=== PATIENT | female | born 1960 | race Caucasian/White ===

== ENCOUNTER 2018-03-19 15:59 | Emergency (ER) | payer BC ==
--- OUTSIDE RECORDS SUMMARY | 2018-03-19 16:15 | XMS REPORT ---
:1960 External Reference #:[id number] Author Organization [facility] Address [address] [place] [address] [place] [address] Phone [phone] Care Team Providers Name Role Phone Jose Roberson PA-C Primary Care Physician Unavailable Payers Type Date Identification Numbers Payment Provider Subscriber Commercial Policy Number: [id number] [employer] Shena Monson PayID: [id number] [address] [address] [place] [address] Problems Description No Information Social History Type Date Description Comments Marital Status Single Lives With Alone 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 Cigarette Use Former Cigarette Smoker Smoked 1/2 ppd for 10 years ETOH Use Rarely consumes alcohol Smoking Patient is a former smoker Recreational Drug Use Denies Drug Use Daily Caffeine Consumes on average 32oz of iced tea per day Exercise Type/Frequency Does not exercise Allergies, Adverse Reactions, Alerts Date Description Reaction Status Severity Comments 03/19/2018 Sulfa active 03/19/2018 Bioxin active 03/19/2018 Hydrocodone active 03/19/2018 Neosporin active Medications Medication Date Status Form Strength Qnty SIG Indications Ordering Provider Alprazolam / Active Tablets 0.25mg take 1-2 Unknown 0000 tablets by mouth three times a day if needed for anxiety or s Bupropion HCL ER / Active Tablets ER 200mg 1 tab qd Unknown (SR) 0000 12HR Lamotrigine / Active Tablets 200mg 1 tab qd Unknown 0000 Amitriptyline / Active Tablets 25mg 1 qhs Unknown HCL 0000 Omeprazole / Active Capsules 20mg 1 tab qd Unknown [address] DR Adderall XR / Active Caps ER 20mg once by Unknown 0000 24HR mouth every morning Adderall 0000/ Active Tablets 20mg 1 by Unknown 0000 mouth every day Vitamn D 00/ Active Capsules [id number] 1 by Unknown 0000 mouth every day Vitamin B6 0000/ Active Tablets 200mg 1/2 by Unknown 0000 mouth every day Multi Vitamin 00/00/ Active Tablets 1 by Unknown Daily 0000 mouth every day Calcium 00/00/ Active Tablets 1000Units 1 by Unknown 0000 mouth a day Vital Signs Date Vital Result Comment 03/19/2018 Height 67 inches 5'7" Weight 169.00 lb Heart Rate 108 /min BP Systolic Sitting 112 mmHg BP Diastolic Sitting 64 mmHg Respiratory Rate 14 /min O2 % BldC Oximetry 98 % BMI (Body Mass Index) 26.5 kg/m2 Neck Circumference in inches 14.5 Results Description No Information Procedures Date CPT Code Description Status 12/30/2017 99914 Moderate Sedation Services; Same Phys Each Additional Completed 15 Mins 12/30/2017 06422 Moderate Sedation Services; Same Phys Intl 15 Mins; PT Completed >=5 Years 12/30/2017 26712 Fluoroscopic Guidance For Cent Completed 12/30/2017 82727 Ultrasound Guidance For Vascular Access Completed 12/30/2017 25504 Insertion Tunneled Cent Venous Cathr W Subcut Port 5 Completed Yrs Or Oldr Encounters Type Date Location Provider CPT E/M Dx Office Visit 03/19/2018 10:00a [facility] [place] [address] [facility] [facility] C50.919 Plan of Care 03/19/2018 - Clara Bermeo MDJ90 Pleural effusion, not elsewhere classifiedFollow up:1 weekC50.919 Malignant neoplasm of unsp site of unspecified female breast
[2018-03-19] MEDS ORDERED: Gadoteridol* (CONTRAST) 279.3 MG/ML 10 ML IV ONE (17:04)
--- NOTE | 2018-03-19 18:08 | ED ---
Neurological HPI - HPI Summary HPI Summary: This is Barbara queen, documenting for attending Femi Roque MD. This patient is a 57 [facility] Av[facility] due to increased bilateral lower extremity weakness and gradually worsening gait and stability. Dr. Elizabeth called and reports new pleural effusion which requires thoracentesis (will be performed as on outpatient). Dr. Elizabeth reports a significant PMHx of breast CA with metastasis to the bone. Due to recent symptoms Dr. Elizabeth ordered an outpatient MRI that could not be done timely. She is sending this patient to be sent to ED to have a Brain MRI performed here. If metastasis to the brain is found, she recommends patient be admitted and given radiation tomorrow. I, Dr. Roque personally performed the services described in this documentation as scribed in my presence and it is both accurate and complete. - History of Current Complaint Chief Complaint: EDWeakness Stated Complaint: WEAKNESS IN LEGS Time Seen by Provider: 03/19/18 16:01 Hx Obtained From: Patient Onset/Duration: Gradual Onset, Started weeks ago Timing: Constant Onset Severity: Mild Current Severity: Moderate Neurological Deficit Location: RLE, LLE Pain Intensity: 0 Character: Weak, Other: - gait changes Associated Signs and Symptoms: Positive: Unsteady Gait - Allergy/Home Medications Allergies/Adverse Reactions: Allergies Allergy/AdvReac Type Severity Reaction Status Date / Time clarithromycin [From Biaxin] Allergy Unknown Verified 03/04/18 10:10 Reaction Details hydrocodone Allergy Nausea And Verified 03/04/18 10:11 Vomiting/DIZZY Sulfa (Sulfonamide Allergy Rash Verified 03/04/18 10:10 Antibiotics) PMH/Surg Hx/FS Hx/Imm Hx Endocrine/Hematology History: Denies: Hx Diabetes Cardiovascular History: Denies: Hx Hypertension, Hx Pacemaker/ICD History: Denies: Hx Renal Disease Sensory History: Denies: Hx Hearing Aid Psychiatric History: Denies: Hx Panic Disorder - Cancer History Cancer Type, Location and Year: BREAST CA. BONE CA - Surgical History Surgery Procedure, Year, and Place: URETER RELOCATION. APPY. GALLBLADDER. LUMPECTOMY RIGHT BREAST-BENIGN. BILATERAL THUMBS. C SECTION. HYSTERECTOMY Infectious Disease History: No Infectious Disease History: Denies: Traveled Outside the US in Last 30 Days - Family History Known Family History: Positive: Hypertension - Social History Alcohol Use: Rare Substance Use Type: Reports: None Smoking Status (MU): Former Smoker Review of Systems Negative: Fever, Chills Negative: Erythema Negative: Sore Throat Negative: Chest Pain Negative: Shortness Of Breath, Cough Negative: Abdominal Pain, Vomiting, Diarrhea, Nausea Negative: dysuria, hematuria Negative: Myalgia, Edema Negative: Rash Neurological: Other - unsteady gait Positive: Weakness All Other Systems Reviewed And Are Negative: Yes Physical Exam - Summary Physical Exam Summary: Constitutional: Well-developed, Well-nourished, Alert. (-) Distressed Skin: Warm, Dry HENT: Normocephalic; Atraumatic Eyes: Conjunctiva normal Neck: Musculoskeletal ROM normal neck. (-) JVD, (-) Stridor, (-) Tracheal deviation Cardio: Rhythm regular, rate normal, Heart sounds normal; Intact distal pulses; The pedal pulses are 2+ and symmetric. Radial pulses are 2+ and symmetric. (-) Murmur Pulmonary/Chest wall: Effort normal. (-) Respiratory distress, (-) Wheezes, (-) Rales Abd: Soft. (-) Tenderness, (-) Distension, (-) Guarding, (-) Rebound Musculoskeletal: (-) Edema Lymph: (-) Cervical adenopathy Neuro: Alert, Oriented x3, Strength normal, Cranial nerves II-XII are grossly intact. (-) Dysmetria, (-) Nystagmus, (-) Ataxia by finger to nose testing, (-) Sensory deficit. GCS 15. Psych: Mood and affect Normal Triage Information Reviewed: Yes Vital Signs On Initial Exam: Initial Vitals Temp Pulse Resp BP Pulse Ox 98.1 F 103 20 120/66 100 03/19/18 16:02 03/19/18 16:02 03/19/18 16:02 03/19/18 16:02 03/19/18 16:02 Vital Signs Reviewed: Yes Diagnostics - Vital Signs Vital Signs Temp Pulse Resp BP Pulse Ox 03/19/18 16:02 98.1 F 103 20 120/66 100 - Laboratory Result Diagrams: 03/19/18 20:05 03/19/18 20:05 Lab Statement: Any lab studies that have been ordered have been reviewed, and results considered in the medical decision making process. - CT Brain MRI CT Interpretation Completed By: Radiologist - #. New solitary 4 mm enhancing metastatic lesion at the posterior LEFT frontal lobe cortex. Negative for mass effect. #. Chronic nonenhancing white matter lesions most consistent with sequela of chronic microvascular disease. #. No evidence for acute or subacute ischemia. ED Physician has reviewed this report. Course/Dx - Course Course Of Treatment: 57 year old F presenting to [facility] sent from Dr. Aviles office due to increased bilateral lower extremity weakness and gradually worsening gait and stability. Dr. Elizabeth called and reports new pleural effusion which requires thoracentesis (will be performed as on outpatient). Dr. Elizabeth reports a significant PMHx of breast CA with metastasis to the bone. Due to recent symptoms Dr. Elizabeth ordered an outpatient MRI that could not be done timely. She is sending this patient to be sent to ED to have a Brain MRI performed here. If metastasis to the brain is found, she recommends patient be given radiation tomorrow. A Brain MRI reveals: #. New solitary 4 mm enhancing metastatic lesion at the posterior LEFT frontal lobe cortex. Negative for mass effect. #. Chronic nonenhancing white matter lesions most consistent with sequela of chronic microvascular disease. #. No evidence for acute or subacute ischemia. Bloodwork is obtained. Patient is instructed to follow up with Dr. Pan tomorrow to begin radiation. Patient is discharged and agreeable with this plan. - Diagnoses Provider Diagnoses: Unsteady gait, Metastatic breast cancer Discharge - Sign-Out/Discharge Documenting (check all that apply): Patient Departure - Discharge Plan Condition: Stable Disposition: HOME Patient Education Materials: Breast Cancer in Women (DC), Fall Prevention (ED) Referrals: Rajendra Pan MD [Medical Doctor] - (Follow up with Dr. Pan tomorrow.) Additional Instructions: RETURN TO THE EMERGENCY DEPARTMENT FOR CHANGING OR WORSENING SYMPTOMS.
--- NOTE | 2018-03-19 18:58 | RAD ---
Indication: Gait instability. Assess for potential brain metastasis. History of metastatic breast cancer. Comparison: August 23, 2017 MRI. Technique: Moonshoota 1.5 Jeannette [id number] with GEM suite. MRI brain without and with contrast. 16 mL ProHance administered IV. Report: Unremarkable cerebral sulci. Variant asymmetric prominence of the occipital horn of the LEFT lateral ventricle. Negative for hydrocephalus. Patent basal cisterns. Diffusion series is negative for acute or subacute ischemia. Susceptibility series is negative for stigmata of hemosiderin deposition to indicate previous hemorrhage. New solitary 4 mm T2 hyperintense enhancing cortical lesion at the posterior LEFT frontal lobe at the cephalocaudal level of the jeffrey radiata consistent with a metastasis given the clinical context. Negative for mass effect. Unchanged moderate burden of nonenhancing T2 FLAIR hyperintense periventricular and subcortical white matter lesions of the bilateral cerebral hemispheres most consistent with chronic small vessel ischemic disease. Preserved major intracranial flow-voids. Unremarkable orbital contents. No suspicious calvarial or skull base lesions evident. Clear paranasal sinuses. Diffuse LEFT mastoid effusions new compared with the prior exam. IMPRESSION: #. New solitary 4 mm enhancing metastatic lesion at the posterior LEFT frontal lobe cortex. Negative for mass effect. #. Chronic nonenhancing white matter lesions most consistent with sequela of chronic microvascular disease. #. No evidence for acute or subacute ischemia.
[2018-03-19 20:15] LABS: Hematocrit 24 % (35-47); Hemoglobin 8.2 g/dl (12.0-16.0); Mean Corpuscular HGB Conc 34 g/dl (31-36); Mean Corpuscular Hemoglobin 32 pg (27-31); Mean Corpuscular Volume 94 fL (80-97); Mean Platelet Volume 6.4 um3 (7.4-10.4); Platelet Count 186 10^3/ul (150-450); Red Blood Count 2.59 10^6/ul (4.00-5.40); Red Cell Distribution Width 23 % (10.5-15); White Blood Count 3.4 10^3/ul (3.5-10.8)
[2018-03-19 20:28] LABS: EGFR Non-African American 59.5 (>60)
[2018-03-19 21:28] VITALS: BP 130/60
--- NOTE | 2018-03-20 04:09 | PRO ---
THORACENTESIS REPORT: DATE OF PROCEDURE: 03/19/18 - [facility] PROCEDURE PERFORMED BY: Clara Bermeo MD PROCEDURE PERFORMED: Ultrasound-sound guided thoracentesis on the left side. PREPROCEDURAL DIAGNOSIS: Moderate-sized left pleural effusion. POSTPROCEDURAL DIAGNOSIS: ANESTHESIA: 1% lidocaine, local anesthesia 5 cc. DESCRIPTION OF PROCEDURE: Informed consent was obtained from the patient prior to the procedure after all the risks and benefits were thoroughly explained. The patient with history of breast cancer, found to have bilateral pleural effusion greater on the left side. Procedure was performed in [facility], patient was monitored during procedure by pulmonology RN. Appropriate time-out was performed and agreed on by attending staff prior to the procedure. Strict aseptic and all barrier techniques were utilized. The patient was sitting up and leaning forward. A CareFusion 8-German thoracentesis catheter was used. Ultrasound was utilized at bedside to facilitate localization of fluid on the left side. Site was marked. Chlorhexidine scrub was utilized to clean the area. A sterile drape was placed. 1% lidocaine then was instilled under manual suction subcutaneously and intradermally down into the pleural space taking precautions. A stab incision was made with #11 scalpel blade. A CareFusion 8- German thoracentesis catheter was then inserted under manual suction into the pleural space taking precautions. Catheter was left in place and needle was removed. 650 mL of clear dark yellow fluid was aspirated under manual suction. Specimen was sent for cytological, biochemical, and hematological testing. Catheter was then removed and sterile Band-Aid was applied. The patient tolerated the procedure well. Postprocedure chest x-ray was ordered and is pending at the time of dictation. The patient's vital signs were stable during and after the procedure. [id number]/[facility] #: [id number] [facility]
== END 2018-03-19 21:25 | disposition home or self-care (01) ==
LOC: ED 15:59
DX: R26.81 Unsteadiness on feet (principal); C50.919 Malignant neoplasm of unspecified site of unspecified female breast; C79.51 Secondary malignant neoplasm of bone; J90 Pleural effusion, not elsewhere classified; Z88.1 Allergy status to other antibiotic agents; Z88.5 Allergy status to narcotic agent; Z88.2 Allergy status to sulfonamides; Z82.49 Family history of ischemic heart disease and other diseases of the circulatory system; Z87.891 Personal history of nicotine dependence
CPT/HCPCS: 36415; 70553; 80053; 85027; 96374; 99282; A9579

== ENCOUNTER → 2018-04-24 10:54 | Day surgery (SDC) | payer BC ==
[~2018-04-24 10:54] MED LIST: Lidocaine 1% INJ* 10 MG/ML 30 ML SDV ONE
--- NOTE | 2018-04-24 12:55 | RAD ---
HISTORY: THORACENTESIS PROCEDURE COMPARISONS: None. TECHNIQUE: Multiple transverse and longitudinal ultrasound images were obtained of the left chest using grayscale imaging. FINDINGS: A left pleural effusion is noted. The distance from the skin into the effusion is 1.7 cm. The distance from the skin to the center of the effusion a 6.3 cm. The site was marked for the provider. IMPRESSION: LIMITED ULTRASOUND OF THE LEFT CHEST FOR THORACENTESIS LOCALIZATION
--- NOTE | 2018-04-24 13:18 | RAD ---
Indication: Status post left thoracentesis. Single frontal view of the chest performed at 1255 hours was reviewed. Comparison is made with previous exam dated April 11, 2018. Bilateral pleural effusions are noted. Interstitial edema is noted. Heart is mildly enlarged. No alveolar consolidation is noted. No pneumothorax is identified.. IMPRESSION: INTERSTITIAL EDEMA WITH BILATERAL PLEURAL EFFUSIONS. PACEMAKER LEADS ARE IN PLACE.
--- NOTE | 2018-04-25 01:34 | PRO ---
DICTATION ENDS ABRUPTLY THORACENTESIS REPORT: DATE OF PROCEDURE: 04/24/18 PROCEDURE PERFORMED: Ultrasound-guided thoracentesis on the left side. PREPROCEDURAL DIAGNOSIS: DICTATION ENDS ABRUPTLY [id number]/[facility] #: [id number] [facility]
--- NOTE | 2018-04-25 01:34 | PRO ---
THORACENTESIS REPORT: DATE OF PROCEDURE: 04/24/18 - LOCATED WITHIN [facility] PROCEDURE PERFORMED: Ultrasound-sound guided thoracentesis on the left side. PREPROCEDURAL DIAGNOSIS: Left pleural effusion. POSTPROCEDURAL DIAGNOSIS: Left pleural effusion, moderate to large. ANESTHESIA: Local anesthesia with 1% lidocaine 5 cc. INDICATION: Informed consent was obtained from the patient prior to the procedure after all the risks and benefits were thoroughly explained. The patient recently noted to have recurrent pleural effusion, prior thoracentesis positive for malignant cells. The patient with history of breast cancer. The patient presents with recurrent pleural effusion, symptomatic with cough and shortness of breath. DESCRIPTION OF PROCEDURE: A portable ultrasound was utilized at bedside to localize moderate to large amounts of left pleural effusion freely flowing. No fluid was noted on the right lung. Appropriate time-out was agreed on by attending staff prior to the procedure. Strict aseptic precautions and all barrier techniques were followed. Area was then anesthetized with 1% lidocaine. Sterile drape was placed. After ultrasound localization, area was marked. A CareFusion 8-Surinamese thoracentesis catheter was utilized. 1% lidocaine was inserted transdermally subcutaneously down into the pleural space taking precautions. A #11 scalpel blade was used to make stab incision. An 8- Surinamese thoracentesis catheter was then inserted under manual suction down into the pleural space. Catheter was left in place and needle was removed. 850 mL of dark, yellow, turbid fluid was aspirated under manual suction. Catheter was then removed. A sterile Band-Aid was applied in the area. The patient tolerated the procedure well. Postprocedure chest x-ray was performed and verified by me with no evidence of pneumothorax. The patient was stable and was discharged home. [id number]/[facility] #: [id number] [facility]
== END | disposition home or self-care (01) ==
LOC: OR 10:54
PROVIDERS: ATTEND Internal Medicine
DX: J91.0 Malignant pleural effusion (principal); C50.919 Malignant neoplasm of unspecified site of unspecified female breast; R05 Cough; R06.02 Shortness of breath; Z87.891 Personal history of nicotine dependence
CPT/HCPCS: 32554; 71045; 76604; 88112; 88305; 88341; 88342; 88360

== ENCOUNTER 2018-04-24 14:14 | Emergency (ER) | payer BC ==
[2018-04-24 15:28] LABS: Hematocrit 23 % (35-47); Hemoglobin 7.7 g/dl (12.0-16.0); Mean Corpuscular HGB Conc 34 g/dl (31-36); Mean Corpuscular Hemoglobin 31 pg (27-31); Mean Corpuscular Volume 94 fL (80-97); Mean Platelet Volume 6.8 um3 (7.4-10.4); Platelet Count 188 10^3/ul (150-450); Red Blood Count 2.45 10^6/ul (4.00-5.40); Red Cell Distribution Width 23 % (10.5-15); White Blood Count 1.6 10^3/ul (3.5-10.8)
--- NOTE | 2018-04-24 15:28 | ED ---
HPI Chest Pain - HPI Summary HPI Summary: This patient is a 57 year old F presenting to [facility] accompanied by another woman with a chief complaint of left sided P that began today after her thoracentesis. Today patient had 850 mls of fluid drained from her chest. The patient rates the pain 8/10 in severity. Patient denies SOB increase from baseline. Pt has metastatic breast cancer. Pt is not on blood thinners. - History of Current Complaint Chief Complaint: EDChestPainROMI Time Seen by Provider: 04/24/18 15:04 Hx Obtained From: Patient Onset/Duration: Started Hours Ago, Still Present Timing: Constant Initial Severity: Moderate Current Severity: Moderate Pain Intensity: 8 Pain Scale Used: 0-10 Numeric Chest Pain Location: Left Anterior Chest Pain Radiates: No Alleviating Factor(s): Nothing - SOB increased from baseline - Allergy/Home Medications Allergies/Adverse Reactions: Allergies Allergy/AdvReac Type Severity Reaction Status Date / Time bacitracin Allergy See Comment Verified 04/24/18 11:38 [From Neosporin ([id number])] clarithromycin [From Biaxin] Allergy Unknown Verified 04/24/18 11:38 Reaction Details hydrocodone Allergy Nausea And Verified 04/24/18 11:38 Vomiting/DIZZY neomycin Allergy See Comment Verified 04/24/18 11:38 [From Neosporin ([id number])] polymyxin B Allergy See Comment Verified 04/24/18 11:38 [From Neosporin ([id number])] Sulfa (Sulfonamide Allergy Rash Verified 04/24/18 11:38 Antibiotics) Home Medications: Home Medications ALPRAZolam TAB* [Xanax TAB*] 0.25 - 0.5 mg PO TID PRN 04/24/18 [History Confirmed 04/24/18] Amitriptyline TAB* [Elavil TAB*] 25 mg PO BEDTIME 04/24/18 [History Confirmed ] Amphetamine/Dextroamph ER(NF) [Adderal XR (NF)] 20 mg PO DAILY 04/24/18 [ History Confirmed 04/24/18] Calcium Carbonate [Calcium] 1,000 mg PO DAILY 04/24/18 [History Confirmed ] Cetirizine* [ZyrTEC 10 MG TAB*] 5 mg PO DAILY 04/24/18 [History Confirmed ] Multivitamins/Minerals TAB* [Theragran/minerals TAB*] 1 tab PO DAILY 04/24/18 [ History Confirmed 04/24/18] Omeprazole CAP* [Prilosec CAP* 20 MG] 20 mg PO DAILY 04/24/18 [History Confirmed 04/24/18] Prochlorperazine TAB* [Compazine Tab*] 10 mg PO Q4HR PRN 04/24/18 [History Confirmed 04/24/18] Pyridoxine TAB* [Vitamin B6 TAB*] 100 mg PO DAILY 04/24/18 [History Confirmed ] buPROPion SR TAB* [Wellbutrin SR TAB*] 200 mg PO DAILY 04/24/18 [History Confirmed 04/24/18] lamoTRIgine TAB(*) [LaMICtal TAB(*)] 200 mg PO DAILY 04/24/18 [History Confirmed 04/24/18] oxyCODONE TAB* [Roxycodone TAB 5 mg*] 5 mg PO Q6H PRN 04/24/18 [History Confirmed 04/24/18] PMH/Surg Hx/FS Hx/Imm Hx Endocrine/Hematology History: Denies: Hx Diabetes Cardiovascular History: Denies: Hx Hypertension, Hx Pacemaker/ICD GI History: Denies: Hx Gastrointestinal Bleed History: Denies: Hx Renal Disease Sensory History: Denies: Hx Hearing Aid Psychiatric History: Denies: Hx Panic Disorder - Cancer History Cancer Type, Location and Year: BREAST CA. BONE CA - Surgical History Surgery Procedure, Year, and Place: URETER RELOCATION. APPY. GALLBLADDER. LUMPECTOMY RIGHT BREAST-BENIGN. BILATERAL THUMBS. C SECTION. HYSTERECTOMY - Immunization History Immunizations Up to Date: Yes Infectious Disease History: No Infectious Disease History: Denies: Traveled Outside the [place] in Last 30 Days - Family History Known Family History: Positive: Hypertension - Social History Alcohol Use: Rare Substance Use Type: Reports: None Smoking Status (MU): Former Smoker Review of Systems Positive: Chest Pain Negative: Shortness Of Breath All Other Systems Reviewed And Are Negative: Yes Physical Exam - Summary Physical Exam Summary: Appearance: pallor, no pain distress Skin: warm, dry, reflects adequate perfusion, there is a port in the right chest wall Head/face: normal Eyes: EOMI, COSME ENT: normal Neck: supple, non-tender Respiratory: fine crackles in both bases Cardiovascular:tachy , pulses symmetrical Abdomen: non-tender, soft Bowel Sounds: present Musculoskeletal: normal, strength/ROM intact Neuro: normal, sensory motor intact, A&Ox3 Triage Information Reviewed: Yes Vital Signs On Initial Exam: Initial Vitals Temp Pulse Resp BP Pulse Ox 97.5 F 110 16 120/54 100 04/24/18 14:17 04/24/18 14:17 04/24/18 14:17 04/24/18 14:17 04/24/18 14:17 Vital Signs Reviewed: Yes Diagnostics - Vital Signs Vital Signs Temp Pulse Resp BP Pulse Ox 04/24/18 14:17 97.5 F 110 16 120/54 100 - Laboratory Result Diagrams: 04/24/18 15:16 04/24/18 15:16 Lab Statement: Any lab studies that have been ordered have been reviewed, and results considered in the medical decision making process. - Radiology CXR Radiology Interpretation Completed By: Radiologist - Bilateral pleural effusions. No pneumothorax is noted after thoracentesis. Central line is in place. Dr. Ball has reviewed this report. - EKG 1426 Cardiac Rate: Tachycardia EKG Rhythm: Sinus Tachycardia - at [address] Segment: Normal EKG Interpretation: nml axis Chest Pain Course/Dx - Course Course Of Treatment: Patient with a history of metastatic breast cancer presents with left-sided chest pain following thoracentesis after which he 150 ML's was removed from her chest. X-rays indicate no pneumothorax. Her vitals have remained stable to pre-procedure values. Her WBC is slightly lower given her recent round of chemotherapy. She was hydrated here with improvement. 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 Patient was discharged in improved condition. - Chest Pain Differential Diagnosis/HQI/PQRI: Chest Wall, Lower Respiratory Infection, Pulmonary Embolism, Other: - Pneumothorax - Diagnoses Provider Diagnoses: Metastatic cancer, Pleural effusion, Chest pain - Provider Notifications Discussed Care Of Patient With: Clara Bermeo Time Discussed With Above Provider: 16:32 Instructed by Provider To: Other - Discussed patient care with Dr. Bermeo and he suggested hydration and discharge Discharge - Sign-Out/Discharge Documenting (check all that apply): Patient Departure - Discharge - Discharge Plan Condition: Improved Disposition: HOME Patient Education Materials: Chest Pain (ED), Pleural Effusion (ED) Referrals: Chaya Roberson PA [Primary Care Provider] - Additional Instructions: Return with difficulty breathing, increased pain, fever, worse, new symptoms or other concerns as discussed - Billing Disposition and Condition Condition: IMPROVED Disposition: Home - Attestation Statements Document Initiated by Elaineibe: Yes Documenting Scribe: Praveen Valente Provider For Whom Scribe is Documenting (Include Credential): Teofilo Ball MD Scribe Attestation: Praveen Galvin , scribed for Teofilo Ball MD on 04/24/18 at 1807. Scribe Documentation Reviewed: Yes Provider Attestation: The documentation as recorded by the Praveen queen accurately reflects the service I personally performed and the decisions made by me, Teofilo Ball MD Consult Consult: [id number] I discussed patient care with Nupur Her the patients doctor. She suggested hydrating the patient then discharging her.
[2018-04-24 15:32] LABS: INR 1.09 (0.77-1.02)
[2018-04-24] MEDS ORDERED: NS 0.9% 500 ML* 500 ML IV ONE (15:53)
[2018-04-24 15:56] LABS: EGFR Non-African American 66.6 (>60)
[2018-04-24 15:58] LABS: Monocytes % 23 % (0-7)
[2018-04-24 15:59] LABS: ABS Basophils 0 10^3/ul (0-0.2); ABS Neutrophils 0.9 10^3/ul (1.5-7.7)
--- NOTE | 2018-04-24 16:01 | RAD ---
Indication: Chest pain. 2 views of the chest including dual energy PA views as well as lateral view of the left chest demonstrate small pleural effusions. No definite pneumothorax is noted. Mild interstitial edema is noted. Bilateral pleural effusions are noted. IMPRESSION: Bilateral pleural effusions. No pneumothorax is noted after thoracentesis. Central line is in place.
[2018-04-24] MEDS ORDERED: Acetaminophen TAB* 325 MG PO ONE (17:17)
[2018-04-24 17:32] VITALS: BP 124/72
--- NOTE | 2018-04-24 22:45 | ED ---
Progress - Progress Note Progress Note: 214904/24/18 Kandy from lab calls to make sure that critical lab was noted by provider. Reports absolute neutrophil count of 0.9. Dr. Ball's note reviewed. He notes the slightly decreased wbc count compared to previous. Dr. Elizabeth and Dr. Bermeo were both consulted. Pt was discharged. Labs noted in Dr. Ball's report. No further action needed. Loni Thurman MD 04/24/18 5081. Course/Dx - Course Course Of Treatment: Patient with a history of metastatic breast cancer presents with left-sided chest pain following thoracentesis after which he 150 ML's was removed from her chest. X-rays indicate no pneumothorax. Her vitals have remained stable to pre-procedure values. Her WBC is slightly lower given her recent round of chemotherapy. She was hydrated here with improvement. 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 Patient was discharged in improved condition. - Diagnoses Provider Diagnoses: Metastatic cancer, Pleural effusion, Chest pain - Provider Notifications Time Discussed With Above Provider: 16:32 Instructed by Provider To: Other - Discussed patient care with Dr. Bermeo and he suggested hydration and discharge Discharge - Sign-Out/Discharge Documenting (check all that apply): Post-Discharge Follow Up - Discharge Plan Condition: Improved Disposition: HOME Patient Education Materials: Chest Pain (ED), Pleural Effusion (ED) Referrals: Chaya Roberson PA [Primary Care Provider] - Additional Instructions: Return with difficulty breathing, increased pain, fever, worse, new symptoms or other concerns as discussed - Billing Disposition and Condition Condition: IMPROVED Disposition: Home
== END 2018-04-24 17:30 | disposition home or self-care (01) ==
LOC: ED 14:14
DX: R07.9 Chest pain, unspecified (principal); C79.81 Secondary malignant neoplasm of breast; J90 Pleural effusion, not elsewhere classified; R00.0 Tachycardia, unspecified; Z87.891 Personal history of nicotine dependence; Z88.3 Allergy status to other anti-infective agents; Z88.5 Allergy status to narcotic agent; Z88.2 Allergy status to sulfonamides
CPT/HCPCS: 36415; 71046; 80053; 83605; 83880; 84484; 85025; 85060; 85610; 93005; 99283; A9270-GY

== ENCOUNTER 2018-09-17 20:51 | Inpatient (IN) | payer MEDICAID ==
[2018-09-17] MEDS ORDERED: Ondansetron INJ* 2 MG/ML VIAL IV ONE (21:16)
[2018-09-17] MEDS ORDERED: Acetaminophen TAB* 325 MG PO ONE (21:16)
[2018-09-17] MEDS ORDERED: fentaNYL* 50 MCG/ML 2 ML VIAL (100 MCG VIAL) IV SLOW PU ONE (21:16)
[2018-09-17] MEDS ORDERED: Vancomycin(*) 1,000 MG in NS 0.9% 250 ML* 250 ML IVPB ONE (21:17)
[2018-09-17] MEDS ORDERED: cefTRIAXone(*) 2 GM in NS 0.9% 100 ML* 100 ML IVPB ONE (21:17)
[2018-09-17] MEDS ORDERED: NS 0.9% 1000 ML** 2,000 ML IV ONE (21:18)
--- NOTE | 2018-09-17 21:19 | ED ---
Headache - HPI Summary HPI Summary: This patient is a 57 year old F with hx breast CA presenting to [facility] accompanied by her sister with a chief complaint of BURGOS and confusion since 16: 00. Patient notes that she had a chemo session earlier today and that she usually goes to chemo biweekly. The patient rates the pain 6/10 in severity. Symptoms aggravated by nothing. Symptoms alleviated by nothing. Patient reports fatigue and neck pain. Patient is able to correctly answer questions about the year and place. Patient denies N/V. Patient notes that she was seen at [facility] this weekend for nausea. Patient was diagnosed with metastatic breast CA in June 2015. Patient notes that she never had a mastectomy because a lesion was noted on her spine. - History Of Current Complaint Chief Complaint: EDAltMentalStatus Stated Complaint: HEADACHE Time Seen by Provider: 09/17/18 21:02 Hx Obtained From: Patient Onset/Duration: Sudden Onset, Started hours ago, Still Present Initially Headache Was: Moderate Currently Pain Is: Current Pain Scale(0-10)= - 6, Moderate Timing: Constant, Hours Location of Headache: Diffuse Aggravating Factor: Nothing Allevating Factors: Nothing Associated Signs And Symptoms: Negative - negative nausea, negative vomiting, Neck Pain - Allergies/Home Medications Allergies/Adverse Reactions: Allergies Allergy/AdvReac Type Severity Reaction Status Date / Time bacitracin Allergy See Comment Verified 05/07/18 10:17 [From Neosporin ([id number])] clarithromycin [From Biaxin] Allergy Unknown Verified 05/07/18 10:17 Reaction Details hydrocodone Allergy Nausea And Verified 05/07/18 10:17 Vomiting/DIZZY neomycin Allergy See Comment Verified 05/07/18 10:17 [From Neosporin ([id number])] polymyxin B Allergy See Comment Verified 05/07/18 10:17 [From Neosporin ([id number])] Sulfa (Sulfonamide Allergy Rash Verified 05/07/18 10:17 Antibiotics) PMH/Surg Hx/FS Hx/Imm Hx Endocrine/Hematology History: Denies: Hx Diabetes Cardiovascular History: Reports: Other Cardiovascular Problems/Disorders - LEFT THORACENTESIS X3 Denies: Hx Hypertension, Hx Pacemaker/ICD GI History: Denies: Hx Gastrointestinal Bleed History: Denies: Hx Renal Disease Sensory History: Denies: Hx Hearing Aid Psychiatric History: Denies: Hx Panic Disorder - Cancer History Cancer Type, Location and Year: BREAST CA, METS Hx Chemotherapy: Yes Hx Radiation Therapy: Yes - Surgical History Surgery Procedure, Year, and Place: URETER RELOCATION. APPY. GALLBLADDER. LUMPECTOMY RIGHT BREAST-BENIGN. BILATERAL THUMBS. C SECTION. HYSTERECTOMY. PORT 02/2018. GAMMA KNIFE X 3 03/2018,05/2018, 07/2018 Infectious Disease History: No Infectious Disease History: Denies: Traveled Outside the [place] in Last 30 Days - Family History Known Family History: Positive: Hypertension - Social History Alcohol Use: Rare Substance Use Type: Reports: None Smoking Status (MU): Former Smoker Review of Systems Positive: Fatigue Negative: Epistaxis Negative: Vomiting, Nausea Musculoskeletal: Other - neck pain Positive: Headache All Other Systems Reviewed And Are Negative: Yes Physical Exam - Summary Physical Exam Summary: VITAL SIGNS: Reviewed. GENERAL: Patient is a well-developed and nourished FEMALE who seems uncomfortable due to her headache. Patient is not in any acute respiratory distress. HEAD AND FACE: No signs of trauma. No ecchymosis, hematomas or skull depressions. No sinus tenderness. EYES: PERRLA, EOMI x 2, No injected conjunctiva, no nystagmus. EARS: Hearing grossly intact. Ear canals and tympanic membranes are within normal limits. MOUTH: Oropharynx within normal limits. NECK: Supple, trachea is midline, no adenopathy, no JVD, no carotid bruit, no c- spine tenderness, mild nuchal rigidity. CHEST: Symmetric, no tenderness at palpation LUNGS: Clear to auscultation bilaterally. No wheezing or crackles. CVS: Regular rhythm, tachycardia, S1 and S2 present, no murmurs or gallops appreciated. ABDOMEN: Soft, non-tender. No signs of distention. No rebound no guarding, and no masses palpated. Bowel sounds are normal. EXTREMITIES: FROM in all major joints, no edema, no cyanosis or clubbing. NEURO: Alert and oriented x 3. No acute neurological deficits. Speech is normal and follows commands. No focal deficits. SKIN: Dry and warm Triage Information Reviewed: Yes Vital Signs On Initial Exam: Initial Vitals Temp Pulse Resp BP Pulse Ox 98.9 F 142 22 147/100 98 09/17/18 20:55 09/17/18 20:55 09/17/18 20:55 09/17/18 20:55 09/17/18 20:55 Vital Signs Reviewed: Yes Procedures - Lumbar Puncture Lumbosacral Joint Procedural Sedation: none administered Position: Sitting - both positions tried, Lateral Decubitus - both positions tried Aseptic Technique: Lidocaine Anesthesia Used: 2.0% Lido - with epi Spinal Needle Used: 20 Gauge Lumbar Puncture Note: Written consent for a spinal tap was obtained from the patients sister. Aseptic technique was used. 2% lidocaine with epi was administered. Patient has scoliosis. I tried multiple attempts between L4 and L5 but was unable to get CSF. This was a dry tap and no CSF was obtained. Diagnostics - Vital Signs Vital Signs Temp Pulse Resp BP Pulse Ox 09/17/18 20:55 98.9 F 142 22 147/100 98 - Laboratory Result Diagrams: 09/17/18 21:47 09/17/18 21:47 Lab Statement: Any lab studies that have been ordered have been reviewed, and results considered in the medical decision making process. - Radiology CXR Radiology Interpretation Completed By: ED Physician - Dr. Quintana, pending official report Summary of Radiographic Findings: large left perfusion with compressive atelectasis - CT CT Brain CT Interpretation Completed By: Radiologist Summary of CT Findings: No acute intracranial abnormality. Dr. Quintana has reviewed this report - EKG 21:18 Cardiac Rate: Tachycardia - at 137 bpm EKG Rhythm: Sinus Tachycardia ST Segment: Normal Summary of EKG Findings: sinus tachycardia at 137 bpm with nml axis, nml intervals, and no ischemic changes Headache Course/Dx - Course Course Of Treatment: This patient is a 57 year old F with hx metastatic breast CA and chemo presenting to [facility] with a chief complaint of acute onset BURGOS and fever since 16:00. Physical exam revealed some nuchal rigidity. Blood culture and abx were started immediately. An EKG reveals sinus tachycardia at 137 bpm with nml axis, nml intervals, and no ischemic changes. CXR reveals, per ED physician, large left perfusion with compressive atelectasis. CT Brain reveals, per radiologist, No acute intracranial abnormality. ED physician has reviewed this radiology report. Patient was examined for meningitis. Written consent for a spinal tap was obtained from the patients sister. Aseptic technique was used. 2% lidocaine with epi was administered. Patient has scoliosis. I tried multiple attempts but was unable to get CSF. This was a dry tap and no CSF was obtained. Test results with no significant abnormalities except for elevated LFTs and patient will receive an US. In the ED course the patient was given IV fluids, vancomycin, Rocephin, Zofran, fentanyl, and Tylenol. We discussed patient care with Dr. Wheeler, hospitalist, and they agreed to admit the patient to [facility]. Patient will be admitted to [facility]. Dx BURGOS, fever, possible meningitis, and left pleural effusion. 45 minutes of critical care time were performed. The patient is agreeable with this plan. - Diagnoses Provider Diagnoses: Pleural effusion, left, Fever, Headache - Physician Notifications Discussed Care Of Patient With: Sonia Wheeler Time Discussed With Above Provider: 22:58 Instructed by Provider To: Admit As Inpatient - Critical Care Time Critical Care Time: 30-74 min - 45 minutes Discharge - Sign-Out/Discharge Documenting (check all that apply): Patient Departure - admit to [facility] Patient Received Moderate/Deep Sedation with Procedure: No - Discharge Plan Condition: Fair Disposition: ADMITTED TO [facility] Referrals: Chaya Roberson PA [Primary Care Provider] - - Attestation Statements Document Initiated by Scribe: Yes Documenting Scribe: Kyara Narvaez Provider For Whom Scribe is Documenting (Include Credential): Laura Quintana MD Scribe Attestation: Kyara Galvin, scribed for Laura Quintana MD on 09/17/18 at 4163. Status of Scribe Document: Ready
--- OUTSIDE RECORDS SUMMARY | 2018-09-17 21:52 | XMS REPORT | Continuity of Care Document ---
:1960 External Reference #:[id number] Author Name Savannah Stokes Care Team Providers Name Role Phone Jose Roberson PA-C Primary Care Physician Unavailable Payers Type Date Identification Numbers Payment Provider Subscriber Policy Number: [id number] Medicaid Shena Pena [employer] Name: 1 1 [address] PayID: [id number] [place] [address] Expires: 2018 Policy Number: [id number] [employer] Shena Pena PayID: [id number] [address] [address] [place] [address] Advance Directives Description No Information Available Problems Description No Information Family History Description No Information Available Social History Type Date Description Comments Sex Unknown Marital Status Single Lives With Alone 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 Tobacco Use Start: Unknown End: Former Cigarette Smoker Smoked 1/2 ppd for Unknown 10 years Smoking Status Reviewed: 08/22/18 Former Cigarette Smoker Smoked 1/2 ppd for 10 years ETOH Use Rarely consumes alcohol Tobacco Use Start: Unknown End: Patient is a former Unknown smoker Recreational Drug Use Denies Drug Use Exercise Type/Frequency Does not exercise Allergies, Adverse Reactions, Alerts Date Description Reaction Status Severity Comments 03/19/2018 Sulfa Active 03/19/2018 Bioxin Active 03/19/2018 Hydrocodone Active 03/19/2018 Neosporin Active Medications Medication Date Status Form Strength Qnty SIG Indications Ordering Provider Alprazolam 00/ Active Tablets 0.25mg take 1-2 Unknown 0000 tablets by mouth three times a day if needed for anxiety or s Omeprazole / Active Capsules 20mg 1 tab qd Unknown [address] DR Dexamethasone 00/ Active Tablets 2mg Unknown 0000 CBD Oil 00/ Active Unknown 0000 Bupropion HCL ER / Hx Tablets ER 200mg 1 tab qd Unknown (SR) 0000 12HR Lamotrigine / Hx Tablets 200mg 1 tab qd Unknown 0000 Amitriptyline / Hx Tablets 25mg 1 qhs Unknown HCL 0000 Adderall XR / Hx Caps ER 20mg once by Unknown 0000 24HR mouth every morning Adderall / Hx Tablets 20mg 1 by Unknown 0000 mouth every day Vitamn D / Hx Capsules [id number] 1 by Unknown 0000 mouth every day Vitamin B6 / Hx Tablets 200mg 1/2 by Unknown 0000 mouth every day Multi Vitamin / Hx Tablets 1 by Unknown Daily 0000 mouth every day Calcium / Hx Tablets 1000Units 1 by Unknown 0000 mouth a day Immunizations Description No Information Available Vital Signs Date Vital Result Comment 08/22/2018 11:02am Height 67 inches 5'7" Weight 132.00 lb Heart Rate 84 /min BP Systolic 122 mmHg BP Diastolic 68 mmHg Respiratory Rate 16 /min Body Temperature 98.0 F BMI (Body Mass Index) 20.7 kg/m2 08/22/2018 11:01am Respiratory Rate 16 /min 03/19/2018 9:32am Height 67 inches 5'7" Weight 169.00 lb Heart Rate 108 /min BP Systolic Sitting 112 mmHg BP Diastolic Sitting 64 mmHg Respiratory Rate 14 /min O2 % BldC Oximetry 98 % BMI (Body Mass Index) 26.5 kg/m2 Neck Circumference in inches 14.5 Results Test Date Facility Test Result H/L Range Note Laboratory test 04/24/2018 [facility] Cytology SEE RESULT [address] Non-Psychology Intern BELOW [place], [place] [id number] [phone] Body Fluid C&S 03/19/2018 [facility] Body Fluid SEE RESULT [address] [place] [address] Stain [phone] Body Fluid Cell 03/19/2018 [facility] Body Fluid Pleural Fluid Count [address] Source [place], [place] [id number] [phone] Body Fluid WBC 843 /mcL N 3 Body Fluid RBC 70 /mcL Body Fluid Neutrophils 15 % Body Fluid Band 3 % Body Fluid Lymph 67 % Body Fluid [place] 13 % Body Fluid Eosinophil 1 % Body Fluid [place] 1 % Body Fluid Other Cells 52 Body Fluid Total Cells Counted 100 Body Fluid Appearance Clear Body Fluid Color Yellow Body Fluid Volume 8.5 mL Fluid Reviewed By (SEE NOTE) 4 Lactate 03/19/2018 [facility] Lactate 204 U/L 5 Dehydrogenase,BF [address] Dehydrogenase, [place] [address] [phone] Fluid Source PLEURAL 6 Laboratory test 03/19/2018 [facility] Cytology SEE RESULT [address] Non-Psychology Intern BELOW [place], [place] [address] [phone] Body Fluid Total 03/19/2018 [facility] Total Protein, 3.4 g/dL [address] [place] [address] [phone] Fluid Source PLEURAL 9 Body Fluid Glucose 03/19/2018 [facility] Glucose, BF 103 mg/dL [address] [place], [place] [address] [phone] Fluid Source PLEURAL 11 1 SEE RESULT BELOW Name: SHENA PENA : [address]: Clara Bermeo MD Acct: [id number] Unit: [id number] AGE: 57 Location: [place] Re04/24/18 SEX: F Status: [facility] SPEC: [id number] JOSE E: 04/24/18-[address] [facility] [address]: Clara Bermeo MD REQ: [id number] RECD: 04/24/181302 STATUS: MUSA JORDAN DR: Nupur Elizabeth MD _ ORDERED: LEVEL 4, NG THIN LAYER, IMMUNO-FIRST, IMMUNO-ADDL/8, IMMUNO-QUANT/3 Additional immunohistochemical stains, with appropriately reacting controls, were performed with the following results: Vimentin positive WT-1 negative in malignant cells TTF-1 negative Calretinin negative in malignant cells The previously rendered diagnosis remains unchanged. Addendum Signed (signature on file) Kyara Ordaz MD 1001 FINAL DIAGNOSIS Pleural fluid, left, thoracentesis: -- Metastatic adenocarcinoma; see comment. COMMENT: A cell block was prepared in the evaluation of this specimen. Smears and cell block reveal similar findings. Slides show individual malignant epithelioid cells with occasional intracytoplasmic mucin vacuoles and nuclear pleomorphism. Immunohistochemical stains, with appropriately reacting controls, were performed with the following results: ER negative (0%) AZ negative (0%) HER-2/tejinder positive (3+) CEA positive Hair EP-4 positive CK7 positive CK20 negative CONTINUED ON NEXT PAGE DEPARTMENT OF PATHOLOGY, [address] [place] [address] Magdaleno Dotson M.D. Director KEIKO # [id number] RUN DATE: 04/30/18 [facility] LAB LIVE PAGE 2 Patient: SHENA [id number] (Continued) SPECIMEN COMMENTS (Continued) Tag 72 negative The morphology and immunoprofile support the diagnosis. Dr. Dotson reviewed this case in intradepartmental consultation and agrees with the diagnosis. 1. PLEURAL - LEFT PLEURAL EFFUSION CLINICAL HISTORY Left pleural effusion. Breast cancer. GROSS DESCRIPTION 800 mls of cloudy yellow fluid. Signed by and Reported on: Kyara Ordaz MD 04/29/18 0947 END OF REPORT DEPARTMENT OF PATHOLOGY, [address] [place] [address] Magdaleno Dotson M.D. Director [facility] # [id number] 2 SEE RESULT BELOW Name: SHENA PENA : [address]: Nupur Elizabeth MD Acct: [id number] Unit: [id number] AGE: 57 Location: [facility] Re03/19/18 SEX: F Status: REG REF SPEC: [id number] JOSE E: 03/19/18-[address] [facility] [address]: Clara Bermeo MD REQ: [id number] RECD: 03/19/18 STATUS: SYED JORDAN DR: Nupur Elizabeth MD _ SOURCE: BODY FLUID SPDESC:PL LT LNG ORDERED: BF Cult/GS Procedure Result Reported Site Body Fluid Gram Stain Final 03/19/18- 1413 ML 4+ Neutrophils 4+ Nucleated Cells No Organisms Seen Preparation By Cytospin Smear Body Fluid Culture Final 03/23/18- 0831 ML No Growth Day 4 * - Main Lab . END OF REPORT DEPARTMENT OF PATHOLOGY, [address] [place] [address] Magdaleno Dotson M.D. Director [facility] # [id number] 3 -- REFERENCE VALUE -- Synovial: <150/mcL Peritoneal: <500/mcL Pleural: <500/mcL Pericardial: <500/mcL 4 Atypical epithelial elements noted suspicious for malignancy correlation with cytologic examination recommended. Chronic inflammation, macrophages and reactive mesothelial elements noted. Reviewed by Dr. Dotson 5 REFERENCE VALUE Not Applicable 6 Test Performed by: [facility] - [address] [address] 7 SEE RESULT BELOW Name: JEAN,SHENA E : [address]: Nupur Elizabeth MD Acct: [id number] Unit: [id number] AGE: 57 Location: [facility] Re03/19/18 SEX: F Status: REG REF SPEC: [id number] JOSE E: 03/19/18-[address]: Clara Bermeo MD REQ: [id number] RECD: 03/19/18 STATUS: MUSA JORDAN DR: Nupur Elizabeth MD _ ORDERED: PTH HANDLING CH, LEVEL 4, NG THIN LAYER, IMMUNO-FIRST, IMMUNO-ADDL/ 17, IMMUNO-QUANT FISH has been performed at [place], [place]. The testing reveals: / (Original report scanned into Pathology Results) Addendum Signed (signature on file) Kyara Ordaz MD 1454 Additional immunohistochemical stains, with appropriately reacting controls, were performed with the following results: AZ negative HER-2/tejinder indeterminate (2+) MLH-1 intact MSH-2 intact MSH-6 intact PMS-2 intact Addendum Signed (signature on file) Kyara Ordaz MD 1125 Immunohistochemical stains, with appropriately reacting controls, were performed with the following results: Pankeratin positive CEA positive RCC negative CK7 positive CK20 negative CA125 positive Vimentin positive WT-1 positive ER negative CA19-9 negative CDX 2 negative TTF-1 negative P63 negative The immunoprofile suggests the possibility of a gynecologic primary. An ER- negative breast cancer could also have this immunoprofile. A few additional stains are pending and will be reported in an additional addendum. CONTINUED ON NEXT PAGE DEPARTMENT OF PATHOLOGY, [address] [place] [address] Magdaleno Dotson M.D. Director [facility] # [id number] RUN DATE: 04/02/18 [facility] LAB LIVE PAGE 2 Patient: SHENA PENA [id number] (Continued) ADDENDUM (Continued) Addendum Signed (signature on file) Kyara Ordaz MD 05/29 1511 FINAL DIAGNOSIS Pleural fluid, left: -- Malignant- non-small cell carcinoma. Addendum: Immunohistochemical stains to further characterize this malignant effusion are pending and will be reported in an addendum. A cell block was prepared in the evaluation of this specimen. Smears and cell block reveal similar findings. 1. PLEURAL - PLEURAL EFFUSION CLINICAL HISTORY Left pleural effusion. 2016 breast cancer. GROSS DESCRIPTION 600 mls of cloudy yellow fluid. Signed by and Reported on: Magdaleno Dotson MD 04/29 1425 END OF REPORT DEPARTMENT OF PATHOLOGY, [address] [place] [address] Magdaleno Dotson M.D. Director [facility] # [id number] 8 REFERENCE VALUE Not Applicable ADDITIONAL INFORMATION This test has been modified from the test engineering intern's instructions. Its performance characteristics were determined by [facility] in a manner consistent with CLIA requirements. This test has not been cleared or approved by the U.S. Food and Drug Administration. 9 Test Performed by: [address] [address] 10 REFERENCE VALUE Not Applicable 11 Test Performed by: [address] [address] Procedures Date Code Description Status 08/22/2018 01054 Fine Needle Aspiration; W/O Imaging Guidance Completed 04/24/2018 81567 Thoracentesis W/ Img Guidance Completed 04/22/2018 03513 Thoracentesis W/ Img Guidance Completed 04/11/2018 42517 Thoracentesis Needle/Catheter Aspiration W/ Img Guidance Completed 03/24/2018 42872 ECHO Transthorasic Realtime 2D W Doppler & Color Flow Hosp Completed 03/19/2018 03968 Thoracentesis W/ Img Guidance Completed 12/30/2017 02290 Moderate Sedation Services; Same Phys Each Additional 15 Completed Mins 12/30/2017 92719 Moderate Sedation Services; Same Phys Intl 15 Mins; PT >=5 Completed Years 12/30/2017 88945 Fluoroscopic Guidance For Cent Completed 12/30/2017 90782 Ultrasound Guidance For Vascular Access Completed 12/30/2017 00349 Insertion Tunneled Cent Venous Cathr W Subcut Port 5 Yrs Completed Or Oldr Encounters Type Date Location Provider Dx Diagnosis Office Visit 03/19/2018 Pulmonology And Clara Bermeo, J90 Pleural effusion, 10:00a Sleep Services 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
[2018-09-17 22:12] LABS: Activated Partial Thrombo Time 26.7 seconds (26.0-36.3); INR 1.06 (0.77-1.02)
[2018-09-17 22:13] LABS: Albumin 3.5 g/dL (3.2-5.2); Albumin/Globulin Ratio 1.2 (1-3); BUN/Creatinine Ratio 35.8 (8-20); EGFR Non-African American 90.1 (>60); Potassium 3.8 mmol/L (3.5-5.0); Total Bilirubin 0.7 mg/dL (0.2-1.0); Total Protein 6.5 g/dL (6.4-8.9)
[2018-09-17] MEDS ORDERED: Lidocaine 2% EPI 1:200000 MPF*10-20 ML VIAL ONE (22:17)
[2018-09-17 22:18] LABS: Hematocrit 32 % (35-47); Hemoglobin 10.9 g/dl (12.0-16.0); Mean Corpuscular HGB Conc 34 g/dl (31-36); Mean Corpuscular Hemoglobin 31 pg (27-31); Mean Corpuscular Volume 94 fL (80-97); Mean Platelet Volume 6.5 fL (7.4-10.4); Platelet Count 88 10^3/ul (150-450); Red Blood Count 3.46 10^6/ul (4.00-5.40); Red Cell Distribution Width 18 % (10.5-15); White Blood Count 2.8 10^3/ul (3.5-10.8)
[2018-09-17 22:57] LABS: Immature Granulocytes 17 % (0-9); Lymphocytes % 7 %; Metamyelocytes % 4 % (0-2); Monocytes % 4 %; Neutrophil % 72 %; Nucleated Red Blood Cells/100 2 (0-0)
[2018-09-17 22:58] LABS: Polychromasia 1+
[2018-09-17 22:59] LABS: ABS Basophils 0 10^3/ul (0-0.2); ABS Eosinophils 0 10^3/ul (0-0.6); ABS Lymphocytes 0.2 10^3/ul (1.0-4.8); ABS Monocytes 0.3 10^3/ul (0-0.8); ABS Neutrophils 2.4 10^3/ul (1.5-7.7); ABS Nucleated RBC 0 10^3/ul; Nucleated Red Blood Cells % 1.1
[2018-09-17 23:15] LABS: C Reactive Protein 18.39 mg/L (<8.01)
[2018-09-17 23:16] LABS: Influenza A Molecular NEGATIVE (Negative); Influenza B Molecular NEGATIVE (Negative)
[2018-09-17 23:21] LABS: Urine Appearance Cloudy; Urine Bacteria Absent (Absent); Urine Bilirubin Negative (Negative); Urine Blood Negative (Negative); Urine Color Yellow; Urine Glucose Negative (Negative); Urine Ketones Negative (Negative); Urine Nitrite Negative (Negative); Urine Protein 1+(30 mg/dL) (Negative); Urine Red Blood Cell 1+(3-5/hpf) (Absent); Urine Specific Gravity 1.026 (1.010-1.030); Urine Squamous Epithelial Cell Present (Absent); Urine Urobilinogen Negative (Negative); Urine White Blood Cell 1+(6-10/hpf) (Absent)
[2018-09-18] MEDS ORDERED: Mupirocin 2% OINT* TUBE TOPICAL PRN (00:32)
[2018-09-18] MEDS ORDERED: Piperacillin/Tazobac ADVAN(*) 3.375 GM in NS 0.9% 100 ML* 100 ML IVPB ONE (01:00)
[2018-09-18] MEDS ORDERED: Zosyn per Pharmacy* NOTE FOLLOW UP SCH (01:00)
[2018-09-18] MEDS: NS 0.9% 1000 ML** 1,000 ML IV SCH (01:26)
--- NOTE | 2018-09-18 02:50 | HP ---
CC: Dr. Elizabeth; DARRIUS Wall HISTORY AND PHYSICAL: DATE OF ADMISSION: 09/18/18 PRIMARY CARE PROVIDER: DARRIUS Wall ONCOLOGIST: Dr. Elizabeth. CHIEF COMPLAINT: Altered mental status, headache. HISTORY OF PRESENT ILLNESS: This is a 57-year-old female with history of breast cancer, who had a chemotherapy on 09/17/18, who now presents to the emergency room with complaints of headaches, confusion, and weakness. The patient reports that shortly after getting her chemotherapy she felt very confused, was having generalized weakness, and having a headache of frontal aching headache, as bad as 8/10. This was not associated with any nausea or vomiting. There was no chills; however, she did not take her temperature. She reports that last weekend she spent at [facility], at that time was diagnosed with dehydration as well as GI illness. In the emergency room, the patient was noted to have headache as well as fever of 102.3. Subsequently, the emergency room physician attempted to get a lumbar puncture done; however, was unsuccessful. In the emergency room, the patient was given IV fluids, was also given Zofran, Rocephin and vancomycin. Subsequently, the hospitalist service was called. The patient states that she is having some confusion; however, is getting better. She feels very weak and dehydrated. Other than that she does not have any specific complaints. She does not have have any nausea or vomiting, is having some trouble with urination, decreased volume, otherwise no burning upon urination, no hesitancy. There is no nausea or vomiting, no cough, no sputum production. She does have history of large pleural effusion, on the left side has required thoracentesis on 3 different occasions. PAST MEDICAL HISTORY: Breast cancer, had required radiation as well as gamma radiation surgery in the past, chemotherapy, most recently had chemotherapy on 09/17/18. Left pleural effusion. PAST SURGICAL HISTORY: Includes appendectomy, gallbladder surgery. MEDICATIONS: Include: 1. Xanax 0.25 to 0.5 mg 3 times as needed for anxiety. 2. Amitriptyline 25 mg daily. 3. Amphetamine/dextromethorphan, Adderall 20 mg daily. 4. Calcium carbonate 1000 mg daily. 5. Zyrtec 5 mg daily. 6. Cholecalciferol 1000 units daily. 7. Denosumab 120 mg subcutaneous monthly. 8. Multivitamin/minerals 1 tab daily. 9. Mupirocin 0.2% ointment as needed. 10. Omeprazole 20 mg daily. 11. Compazine 10 mg every 4 hours as needed. 12. Vitamin B6 100 mg daily. 13. Bupropion 200 mg daily. 14. Lamotrigine 200 mg daily. 15. Oxycodone 5 mg every 6 hours as needed. ALLERGIES: She is allergic to BACITRACIN, CLARITHROMYCIN, HYDROCODONE, NEOMYCIN , POLYMYXIN, SULFA ANTIBIOTICS. FAMILY HISTORY: Mother: Stroke. Father: Hypertension, stroke, Alzheimer's. SOCIAL HISTORY: She lives at home, occasional alcohol use, no smoking. REVIEW OF SYSTEMS: She is found to have fever in the emergency room, no chills , is having generalized weakness and confusion. No blurry vision, no changes in vision or hearing, no sore throat, no trouble swallowing. There is no chest pain, no palpitations, no paroxysmal nocturnal dyspnea. She does not have any shortness of breath, no cough, no sputum production, no abdominal pain, no nausea, no vomiting, no diarrhea. For the urinary symptoms, she is having decreased amount of urination; however, no dysuria, no hesitancy, no urgency. She is having headaches and confusion; however, no focal numbness or weakness. PHYSICAL EXAMINATION GENERAL: This is a well-developed, well-nourished female, lying in an ER stretcher, in no acute distress. VITAL SIGNS: Blood pressure of 125/74, oxygenation of 97% on 3 L nasal cannula , respiratory rate of 24, pulse of 121, temperature of 98.7 Fahrenheit, T-max of 102.3. HEENT: Pupils equal, round, reactive to light. Atraumatic, normocephalic. Oral mucosa is dry. There is no nystagmus. NECK: Supple with range of motion intact. There is no oropharyngeal erythema. Tympanic membrane well visualized, pearly lee with no effusion or drainage. LUNGS: There is slight tachypnea with no use of accessory muscles. Decreased air entry at the left lung field. There are crackles with no wheezing. HEART: There is regular tachycardia, no chest wall tenderness. Regular rhythm , no murmurs. ABDOMEN: Bowel sounds are normoactive in all 4 quadrants. Abdomen soft, nontender, nondistended. NEUROLOGIC: Alert and oriented x3, no focal neurological deficits. Tongue is midline, symmetric smile. No facial droop, no nystagmus. Motor is 5/5 in all 4 extremities. SKIN: There are no rashes or lesions. LABS AND IMAGING: Lab shows white count of 2.8, hemoglobin of 10.9, hematocrit of 32, platelets of 88,000. INR of 1.06, lactic acid of 1.6, AST of 263, ALT of 331, alk phos of 159, CRP of 18.39. Sodium of 135, potassium 3.8, chloride of 104, bicarb of 23, BUN of 24, creatinine of 0.67. Imaging: Gallbladder ultrasound was done, results are pending. Chest x-ray: Official report is pending; however, it does show left large pleural effusion with compression atelectasis. Brain CT was done, which shows no acute intracranial abnormality. There is mild periventricular white changes, small lesions seen on the MRI are not visualized on noncontrast exam. Of note, please note that the patient does have history of brain lesions as seen on previous MRI. IMPRESSION AND PLAN: 1. Fever with headaches. At this point, meningitis is in the differential; however, we were unable to get a successful lumbar puncture. The patient was given Rocephin as well as vancomycin. At this point, the etiology of the fever is not exactly known. At this point, we will monitor the patient, start the patient on vancomycin and Zosyn. Blood cultures had been sent. Urinalysis has been reviewed. Chest x-ray has been reviewed as well. 2. SIRS: continue IV fluids, broad spectrum antibiotics and wait for blood cultures. 3. Left-sided large pleural effusion: This could be the focus of the infection as well. The patient reports that she gets thoracentesis done by ordnance technician, Dr. Bermeo. We will consult Dr. Bermeo in the morning and hopefully we can get the thoracentesis done with fluid sent to identify if that is the etiology for the infection. 4. Elevated LFTs: Ultrasound of the right upper quadrant is pending. History of cholecystectomy. We will follow this up. It could be that the patient is having elevated LFT secondary to chemo. At this point, we will monitor this. 5. History of breast cancer: Last chemotherapy a day ago. We will monitor. 6. DVT prophylaxis in the form of sequential compression device. History of brain lesions in setting of malignancy, so will withhold pharmacologic agents for DVT prophylaxis. Regular diet. We will start the patient on IV fluid. We will continue the patient's home medications. [id number]/[facility] #: [id number] MTDD
[2018-09-18] MEDS ORDERED: Vancomycin per Pharmacy* NOTE FOLLOW UP PRN (03:09)
[2018-09-18] MEDS: ALPRAZolam TAB* 0.25 MG PO PRN ×2 (04:13→19:59)
[2018-09-18] MEDS: ZOSYN 3.375 GM Q8H per EXTENDED INFUSION IVPB SCH ×6 (05:24→19:59)
--- NOTE | 2018-09-18 08:48 | CONS ---
PULMONARY CONSULTATION REPORT: DATE OF CONSULTATION: 09/18/18 CONSULTATION REQUESTED BY: Dr. Wheeler. REASON FOR CONSULTATION: Evaluation of pleural effusion. HISTORY OF PRESENT ILLNESS: A 57-year-old female with history of breast cancer , chemotherapy last dose on 09/17/18, who presents to the emergency room for evaluation of altered mental status and headaches. The patient has been having increasing episodes of confusion and generalized weakness. Shortly after receiving her chemo, she felt confused, complained of headache in the frontal area. The patient denies fevers or chills. Denied nausea, vomiting, abdominal pain. She was recently hospitalized at [facility] for evaluation of dehydration and GI illness. The patient was found to be febrile with a temperature of 102.3 in the emergency room. Attempted LP was unsuccessful in the emergency room. She was given IV fluids, Zofran, and was also started on Rocephin and vancomycin. Further evaluation includes chest x-ray, which showed evidence of large left-sided pleural effusion with mild shift in the mediastinum. The patient also with small right pleural effusion. The patient does have a history of pleural effusion. She had thoracentesis in the past in March and in April. Cytology from the pleural fluid was positive for malignant cells. She also had lymph node biopsy done recently from the left cervical node, which was also positive for metastatic adenocarcinoma with breast primary. The patient had PET scan in July, which showed evidence of pleural effusion bilaterally, left greater than right with interval resolution of enlarged mediastinal nodes and newly enlarged hypermetabolic left cervical nodes were seen. The patient reports dyspnea on exertion. Reports not being able to sleep well last night. Denies any episodes of confusion this morning. The patient has been requiring O2 supplementation at 2 L per minute. Her O2 sat was 92% on room air. PAST MEDICAL HISTORY: 1. Breast cancer, status post radiation and surgery, currently on chemotherapy , last dose 09/17/18. 2. Metastatic breast cancer with pleural effusion on the left side. PAST SURGICAL HISTORY: 1. Appendectomy. 2. Gallbladder surgery. MEDICATIONS: 1. Xanax. 2. Amitriptyline. 3. Amphetamine/dextromethorphan. 4. Calcium carbonate. 5. Zyrtec. 6. Cholecalciferol. 7. Denosumab. 8. Multivitamin with mineral. 9. Mupirocin. 10. Omeprazole. 11. Compazine. 12. Vitamin B6. 13. Bupropion. 14. Lamotrigine. 15. Oxycodone. ALLERGIES: BACITRACIN, CLARITHROMYCIN, HYDROCODONE, NEOMYCIN, POLYMYXIN, SULFA ANTIBIOTICS. FAMILY HISTORY: Mother with stroke. Father with hypertension, stroke, and Alzheimer's. SOCIAL HISTORY: Lives at home. Occasional alcohol use. No smoking. REVIEW OF SYSTEMS: All 14 systems reviewed and as per HPI. PHYSICAL EXAM: The patient is in bed, in no apparent distress. Vital signs: Temperature 98.7, pulse 120 beats per minute, respiratory rate 18 per minute, O2 sat 97% on 2 L, blood pressure 153/90. HEENT: Pupils equal and reactive to light. Mucous membranes moist. Lungs: Diminished air entry on the left side. No wheeze. CVS: S1 and S2 present, regular. Abdomen: Soft, nontender, nondistended. Bowel sounds present. Extremities: Normal range of motion. Skin: No rash or bruise. Neuro: Alert, awake, oriented x3. No focal deficits. DIAGNOSTIC STUDIES/LAB DATA: WBC count 2.8, hemoglobin 10.9, hematocrit 32, platelet count 88,000. INR 1.06. Sodium 135, potassium 3.8, chloride 104, bicarb 23, BUN 24, creatinine 0.67, lactic acid 1.6. AST, ALT, and alk phos are elevated. CRP 18. Influenza A and B negative. Chest x-ray performed on admission was personally reviewed by me. No evidence of acute airspace opacities. Large left pleural effusion and small right pleural effusion seen. CT brain: No acute abnormality was seen. Gallbladder ultrasound showed enumerable hepatic masses concerning for metastatic disease. IMPRESSION/RECOMMENDATIONS: 57-year-old female with metastatic breast cancer, admitted for altered mental status, had fever on admission, status post chemo with pancytopenia. The patient with [id number] left pleural effusion. The patient is symptomatic with shortness of breath. The patient would benefit from therapeutic drainage of left pleural effusion. Will perform the procedure with ultrasound guidance today. Procedure wad discussed in detail with the patient. Associated risks and benefits were thoroughly explained. The patient is agreeable to the procedure. The patient is currently on antibiotics for possible pneumonia. Will send the fluid for microbiological cultures. Rest of management as per primary team Thank you for allowing me to participate in the care of your patient. Will follow up with you. [id number]/[facility] #: [id number] ELIANA
[2018-09-18] MEDS: lamoTRIgine TAB(*) 100 MG PO SCH (10:06)
[2018-09-18] MEDS: Pantoprazole TAB * 40 MG TAB PO SCH (10:07)
[2018-09-18] MEDS: Cetirizine* 10 MG TAB PO SCH (10:08)
[2018-09-18] MEDS: Pyridoxine TAB* 50 MG PO SCH (10:08)
[2018-09-18] MEDS: buPROPion SR TAB.SR* 200 MG PO SCH (10:08)
[2018-09-18] MEDS: Calcium Carbonate TAB* 1250 MG (CALCIUM 500 MG) PO SCH (10:08)
[2018-09-18] MEDS: Cholecalciferol TAB* 1000 UNITS PO SCH (10:09)
[2018-09-18] MEDS: Amphetamine/Dextroamph ER(NF) 10 MG CAP.ER PO SCH (10:31)
[2018-09-18] MEDS: Multivitamins/Minerals TAB PO SCH (10:31)
[2018-09-18] MEDS ORDERED: Vancomycin(*) 1,000 MG in NS 0.9% 250 ML* 250 ML IVPB SCH (11:00)
--- NOTE | 2018-09-18 11:11 | PN ---
Progress Note - Progress Note Date of Service: 09/18/18 SOAP: Subjective: [Received 2nd gemcitabine treatment yesterday. After returning home from her infusion she began feeling poorly with UBRGOS and fatigue. Her daughter reported that she was acting herself. She was noted to be febrile upon arrival. LP was attempted but unsuccessful to eval for meningitis. CXR demonstrated large L pleural effusion which she has required thoracentesis for in the past. This am she reports feeling much better. Her BURGOS has resolved. She denies any neck pain or photosensitivity. No nausea or vomiting. No further fevers since admission. She was hospitalized after her first gemcitabine infusion at [facility] with intractable nausea and vomiting. Objective: [ Acetaminophen (Tylenol Tab*) 650 mg PO Q6H PRN PRN Reason: FEVER Alprazolam (Xanax Tab*) 0.25 mg PO TID PRN PRN Reason: ANXIETY Last Admin: 09/18/18 04:13 Dose: 0.25 mg Amitriptyline HCl (Elavil Tab*) 25 mg PO BEDTIME [facility] Amphetamine/Dextroamphetamine (Adderal Xr (Nf)) 20 mg PO DAILY [facility] Last Admin: 09/18/18 10:31 Dose: Not Given Bupropion HCl (Wellbutrin Sr Tab*) 200 mg PO DAILY [facility] Last Admin: 09/18/18 10:08 Dose: Not Given Calcium Carbonate (Calcium Carbonate Tab*) 1,250 mg PO DAILY [facility] Last Admin: 09/18/18 10:08 Dose: Not Given Cetirizine HCl (Zyrtec*) 5 mg PO DAILY [facility]; Protocol Last Admin: 09/18/18 10:08 Dose: Not Given Cholecalciferol (Vitamin D Tab*) 1,000 units PO DAILY [facility] Last Admin: 09/18/18 10:09 Dose: Not Given Sodium Chloride (Ns 0.9% 1000 Ml) 1,000 mls @ 100 mls/hr IV PER RATE [facility] Last Admin: 09/18/18 01:26 Dose: 100 mls/hr Vancomycin HCl 1,000 mg/ (Sodium Chloride) 250 mls @ 166.667 mls/hr IVPB Q12H [facility] Piperacillin Sod/Tazobactam (Sod 3.375 gm/ Sodium Chloride) 100 mls @ 25 mls/ hr IVPB Q8H [facility] Last Admin: 09/18/18 05:24 Dose: 25 mls/hr Lamotrigine (Lamictal Tab(*)) 200 mg PO DAILY [facility] Last Admin: 09/18/18 10:06 Dose: Not Given Multivitamins/Minerals (Theragran/Minerals Tab*) 1 tab PO DAILY [facility] Last Admin: 09/18/18 10:31 Dose: Not Given Mupirocin (Bactroban 2 % Oint*) 1 applic TOPICAL DAILY PRN PRN Reason: RASH Ondansetron HCl (Zofran Inj*) 4 mg IV Q6H PRN PRN Reason: NAUSEA Oxycodone HCl (Roxycodone Tab*) 5 mg PO Q6H PRN PRN Reason: PAIN Pantoprazole Sodium (Protonix Tab*) 40 mg PO DAILY [facility] Last Admin: 09/18/18 10:07 Dose: 40 mg Pharmacy Consult (Zosyn Per Pharmacy*) 1 note FOLLOW UP .ZOSYN PER PHARMACY [facility] Pharmacy Consult (Vancomycin Per Pharmacy*) 1 note FOLLOW UP . PRN PRN Reason: PER PROTOCOL Pharmacy Profile Note (Vancomycin Trough Check) 1 note FOLLOW UP 1030 ONE Stop: 09/19/18 10:31 Pyridoxine HCl (Vitamin B6 Tab*) 100 mg PO DAILY [facility] Last Admin: 09/18/18 10:08 Dose: Not Given Laboratory Results - last 24 hr 09/17/18 09/17/18 09/17/18 21:17 21:47 21:47 WBC 2.8 L RBC 3.46 L Hgb 10.9 L Hct 32 L MCV 94 MCH 31 MCHC 34 RDW 18 H Plt Count 88 L MPV 6.5 L Neut % (Auto) Not Reportable Lymph % (Auto) Not Reportable Cloud % (Auto) Not Reportable Eos % (Auto) Not Reportable Baso % (Auto) Not Reportable Absolute Neuts (auto) 2.4 Absolute Lymphs (auto) 0.2 L Absolute Monos (auto) 0.3 Absolute Eos (auto) 0 Absolute Basos (auto) 0 Absolute Nucleated RBC 0 Immature Gran % 17 H Neutrophils % 72 Band Neutrophils % 13 H Lymphocytes % 7 Monocytes % 4 Metamyelocytes % 4 H Nucleated RBC % 1.1 Nucleated RBCs/100 WBC 2 H Normal RBC Morphology Not Reportable Polychromasia 1+ Hypochromasia 1+ INR (Anticoag Therapy) 1.06 H APTT 26.7 Sodium Potassium Chloride Carbon Dioxide Anion Gap BUN Creatinine Est GFR ( Amer) Est GFR (Non-Af Amer) BUN/Creatinine Ratio Glucose POC Glucose (mg/dL) 129 H Lactic Acid Calcium Total Bilirubin AST ALT Alkaline Phosphatase C-Reactive Protein Total Protein Albumin Globulin Albumin/Globulin Ratio Urine Color Urine Appearance Urine pH Ur Specific [place] Urine Protein Urine Ketones Urine Blood Urine Nitrate Urine Bilirubin Urine Urobilinogen Ur Leukocyte Esterase Urine WBC (Auto) Urine RBC (Auto) Ur Squamous Epith Cells Urine Bacteria Urine Glucose Influenza A (Rapid) Influenza B (Rapid) Blood Type Antibody Screen 09/17/18 09/17/18 09/17/18 21:47 21:47 21:47 WBC RBC Hgb Hct MCV MCH MCHC RDW Plt Count MPV Neut % (Auto) Lymph % (Auto) Cloud % (Auto) Eos % (Auto) Baso % (Auto) Absolute Neuts (auto) Absolute Lymphs (auto) Absolute Monos (auto) Absolute Eos (auto) Absolute Basos (auto) Absolute Nucleated RBC Immature Gran % Neutrophils % Band Neutrophils % Lymphocytes % Monocytes % Metamyelocytes % Nucleated RBC % Nucleated RBCs/100 WBC Normal RBC Morphology Polychromasia Hypochromasia INR (Anticoag Therapy) APTT Sodium 135 Potassium 3.8 Chloride 104 Carbon Dioxide 23 Anion Gap 8 BUN 24 Creatinine 0.67 Est GFR ( Amer) 109.0 Est GFR (Non-Af Amer) 90.1 BUN/Creatinine Ratio 35.8 H Glucose 127 H POC Glucose (mg/dL) Lactic Acid 1.6 Calcium 9.0 Total Bilirubin 0.70 AST 263 H ALT 331 H Alkaline Phosphatase 159 H C-Reactive Protein 18.39 H Total Protein 6.5 Albumin 3.5 Globulin 3.0 Albumin/Globulin Ratio 1.2 Urine Color Urine Appearance Urine pH Ur Specific [place] Urine Protein Urine Ketones Urine Blood Urine Nitrate Urine Bilirubin Urine Urobilinogen Ur Leukocyte Esterase Urine WBC (Auto) Urine RBC (Auto) Ur Squamous Epith Cells Urine Bacteria Urine Glucose Influenza A (Rapid) Influenza B (Rapid) Blood Type B Positive Antibody Screen Negative 09/17/18 09/17/18 23:04 23:10 WBC RBC Hgb Hct MCV MCH MCHC RDW Plt Count MPV Neut % (Auto) Lymph % (Auto) Cloud % (Auto) Eos % (Auto) Baso % (Auto) Absolute Neuts (auto) Absolute Lymphs (auto) Absolute Monos (auto) Absolute Eos (auto) Absolute Basos (auto) Absolute Nucleated RBC Immature Gran % Neutrophils % Band Neutrophils % Lymphocytes % Monocytes % Metamyelocytes % Nucleated RBC % Nucleated RBCs/100 WBC Normal RBC Morphology Polychromasia Hypochromasia INR (Anticoag Therapy) APTT Sodium Potassium Chloride Carbon Dioxide Anion Gap BUN Creatinine Est GFR ( Amer) Est GFR (Non-Af Amer) BUN/Creatinine Ratio Glucose POC Glucose (mg/dL) Lactic Acid Calcium Total Bilirubin AST ALT Alkaline Phosphatase C-Reactive Protein Total Protein Albumin Globulin Albumin/Globulin Ratio Urine Color Yellow Urine Appearance Cloudy Urine pH 5.0 Ur Specific [place] 1.026 Urine Protein 1+(30 mg/dl) A Urine Ketones Negative Urine Blood Negative Urine Nitrate Negative Urine Bilirubin Negative Urine Urobilinogen Negative Ur Leukocyte Esterase Trace A Urine WBC (Auto) 1+(6-10/hpf) A Urine RBC (Auto) 1+(3-5/hpf) A Ur Squamous Epith Cells Present A Urine Bacteria Absent Urine Glucose Negative Influenza A (Rapid) Negative Influenza B (Rapid) Negative Blood Type Antibody Screen Vital Signs: Temp Pulse Resp BP Pulse Ox 98.7 F 120 16 153/90 97 09/18/18 01:00 09/18/18 01:00 09/18/18 07:27 09/18/18 01:00 09/18/18 01:00 Exam: Gen: mildly fatigued appearing 57 yo female in NAD Neck: supple, nonTTP HEENT: MMM CV: Resp: Abd: Ext:] Assessment: [57 yo female with metastatic breast CA who recently started gemcitabine who was admitted shortly after her infusion with fever, weakness and BURGOS.] Plan: [1. Fever: - no clear source of infection - the timing of her fever is suspicious for this being a drug fever from the gemcitabine infusion - will plan to cont Zosyn until culture results return, can stop Vanco - suspicion for meningitis is very low given how quickly her symptoms resolve, there does not seem to be great indication to reattempt lumbar puncture at this time] 2. Pleural effusion, malignant - thoracentesis with Dr Bermeo planned later today - send for gram stain and culture, but low suspicion that this is infectious 3. Metastatic BCA - h/o [employer] mets s/p [place] 06/2018 - evidence of new hepatic mets on GBUS when compared to PET from July 2018 and associated transaminitis - she recently started gemcitabine, POD in the liver likely occurred prior to starting the gemcitabine - if this fever is drug related then she is tolerating the gemcitabine very poorly and will need to consider a change in regimen v hospice - at this time she seems apt to continue with treatment Dispo: cont inpatient care with pending thoracentesis
[2018-09-18 11:24] LABS: ABS Basophils 0 10^3/ul (0-0.2); ABS Eosinophils 0 10^3/ul (0-0.6); ABS Lymphocytes 0.2 10^3/ul (1.0-4.8); ABS Monocytes 0.1 10^3/ul (0-0.8); ABS Neutrophils 2.3 10^3/ul (1.5-7.7); ABS Nucleated RBC 0 10^3/ul; Eosinophil % 0.3 %; Hematocrit 32 % (35-47); Hemoglobin 10.7 g/dl (12.0-16.0); Lymphocyte % 7.5 %; Mean Corpuscular HGB Conc 33 g/dl (31-36); Mean Corpuscular Hemoglobin 32 pg (27-31); Mean Corpuscular Volume 95 fL (80-97); Mean Platelet Volume 6.8 fL (7.4-10.4); Nucleated Red Blood Cells % 0.2; Platelet Count 88 10^3/ul (150-450); Red Blood Count 3.41 10^6/ul (4.00-5.40); Red Cell Distribution Width 19 % (10.5-15); White Blood Count 2.6 10^3/ul (3.5-10.8)
[2018-09-18] MEDS ORDERED: Loperamide CAP* 2 MG PO ONE (11:34)
[2018-09-18] MEDS ORDERED: Loperamide CAP* 2 MG PO PRN (11:35)
[2018-09-18 11:58] LABS: Albumin 3.3 g/dL (3.2-5.2); Albumin/Globulin Ratio 1.1 (1-3); BUN/Creatinine Ratio 22.4 (8-20); Calcium 8.6 mg/dL (8.6-10.3); EGFR African American 94.3 (>60); EGFR Non-African American 77.9 (>60); Globulin 3.1 g/dL (2-4); Potassium 3.6 mmol/L (3.5-5.0); Total Bilirubin 0.6 mg/dL (0.2-1.0); Total Protein 6.4 g/dL (6.4-8.9)
[2018-09-18] MEDS: Acetaminophen TAB* 325 MG PO PRN ×2 (13:45→19:58)
[2018-09-18 14:27] LABS: Body Fluid Source Pleural Fluid
--- NOTE | 2018-09-18 14:47 | PRO ---
THORACENTESIS REPORT: DATE OF PROCEDURE: 09/18/18 PROCEDURE PERFORMED: Ultrasound-guided thoracentesis on the left side. PREPROCEDURAL DIAGNOSIS: Large left pleural effusion. ANESTHESIA: Local anesthesia with 1% lidocaine 5 cc. DESCRIPTION OF PROCEDURE: Informed consent was obtained from the patient prior to the procedure after all the risks and benefits were thoroughly explained. Appropriate time-out was agreed on by attending staff. A portable ultrasound was used at bedside to localize pleural fluid. A [employer]usion 8-Lao thoracentesis catheter was utilized. Strict aseptic precautions and all barrier techniques were followed. The patient was sitting up leaning forward. Area was cleaned with chlorhexidine. Sterile drapes were applied; 1% lidocaine was then inserted transdermally, subcutaneously down into the pleural space taking precautions. A portable ultrasound was utilized at bedside to localize fluid with evidence of increased densities at the bases. Stab incision was made with #11 scalpel blade to facilitate the passage of thoracentesis catheter. CareFusion 8-Lao thoracentesis catheter was then inserted under manual suction down into the pleural space taking precautions. Catheter was left in place and needle was removed; 1500 mL of dark yellow fluid was then removed under manual suction. The patient tolerated the procedure well. Catheter was then removed and a sterile Band-Aid was applied. Postprocedure chest x-ray was ordered and is pending at the time of dictation. [id number]/[facility] #: [id number] [facility] CENTERKendall
[2018-09-18 14:59] LABS: Body Fluid Mono 28 %; Body Fluid Other Cells 1
[2018-09-18] MEDS: Amitriptyline TAB* 25 MG PO SCH (19:59)
[2018-09-19] MEDS: NS 0.9% 1000 ML** 1,000 ML IV SCH ×2 (02:19→22:53)
[2018-09-19] MEDS: ALPRAZolam TAB* 0.25 MG PO PRN ×2 (02:31→16:15)
[2018-09-19] MEDS: Acetaminophen TAB* 325 MG PO PRN ×3 (02:31→15:22)
[2018-09-19] MEDS: oxyCODONE TAB* 5 MG TAB PO PRN ×4 (04:28→23:19)
[2018-09-19] MEDS: ZOSYN 3.375 GM Q8H per EXTENDED INFUSION IVPB SCH ×2 (05:30)
[2018-09-19] MEDS: Amphetamine/Dextroamph ER(NF) 10 MG CAP.ER PO SCH (07:39)
[2018-09-19] MEDS: Pyridoxine TAB* 50 MG PO SCH (07:39)
[2018-09-19] MEDS: buPROPion SR TAB.SR* 200 MG PO SCH (07:39)
[2018-09-19] MEDS: lamoTRIgine TAB(*) 100 MG PO SCH (07:39)
[2018-09-19] MEDS: Cetirizine* 10 MG TAB PO SCH (07:39)
[2018-09-19] MEDS: Multivitamins/Minerals TAB PO SCH (07:39)
[2018-09-19] MEDS: Cholecalciferol TAB* 1000 UNITS PO SCH (07:39)
[2018-09-19] MEDS: Calcium Carbonate TAB* 1250 MG (CALCIUM 500 MG) PO SCH (07:39)
[2018-09-19] MEDS: Pantoprazole TAB * 40 MG TAB PO SCH (08:34)
[2018-09-19] MEDS: Ondansetron INJ* 2 MG/ML VIAL IV PRN ×2 (09:48→22:05)
[2018-09-19] MEDS ORDERED: Vancomycin Trough Check NOTE FOLLOW UP ONE (10:30)
[2018-09-19] MEDS ORDERED: Gadoteridol* (CONTRAST) 279.3 MG/ML 10 ML IV ONE (14:58)
[2018-09-19 15:27] LABS: Lactate Dehydrogenase, BF 105 U/L
--- NOTE | 2018-09-19 16:01 | PN ---
Progress Note - Progress Note Date of Service: 09/19/18 SOAP: Subjective: [She is really uncomfortable this morning with a terrible frontal BURGOS. No n/v. No further fevers] Objective: [ Acetaminophen (Tylenol Tab*) 650 mg PO Q6H PRN PRN Reason: FEVER Last Admin: 09/19/18 15:22 Dose: 650 mg Alprazolam (Xanax Tab*) 0.25 mg PO TID PRN PRN Reason: ANXIETY Last Admin: 09/19/18 02:31 Dose: 0.25 mg Amitriptyline HCl (Elavil Tab*) 25 mg PO BEDTIME [facility] Last Admin: 09/18/18 19:59 Dose: Not Given Amphetamine/Dextroamphetamine (Adderal Xr (Nf)) 20 mg PO DAILY [facility] Last Admin: 09/19/18 07:39 Dose: Not Given Bupropion HCl (Wellbutrin Sr Tab*) 200 mg PO DAILY [facility] Last Admin: 09/19/18 07:39 Dose: Not Given Calcium Carbonate (Calcium Carbonate Tab*) 1,250 mg PO DAILY [facility] Last Admin: 09/19/18 07:39 Dose: Not Given Cetirizine HCl (Zyrtec*) 5 mg PO DAILY [facility]; Protocol Last Admin: 09/19/18 07:39 Dose: Not Given Cholecalciferol (Vitamin D Tab*) 1,000 units PO DAILY [facility] Last Admin: 09/19/18 07:39 Dose: Not Given Dexamethasone (Decadron Tab*) 2 mg PO BID [facility] Sodium Chloride (Ns 0.9% 1000 Ml) 1,000 mls @ 100 mls/hr IV PER RATE [facility] Last Admin: 09/19/18 02:19 Dose: 100 mls/hr Lamotrigine (Lamictal Tab(*)) 200 mg PO DAILY [facility] Last Admin: 09/19/18 07:39 Dose: Not Given Loperamide HCl (Imodium Cap*) 2 mg PO .SEE DIRECTIONS PRN PRN Reason: DIARRHEA Multivitamins/Minerals (Theragran/Minerals Tab*) 1 tab PO DAILY [facility] Last Admin: 09/19/18 07:39 Dose: Not Given Mupirocin (Bactroban 2 % Oint*) 1 applic TOPICAL DAILY PRN PRN Reason: RASH Ondansetron HCl (Zofran Inj*) 4 mg IV Q6H PRN PRN Reason: NAUSEA Last Admin: 09/19/18 09:48 Dose: 4 mg Oxycodone HCl (Roxycodone Tab*) 10 mg PO Q4H PRN PRN Reason: PAIN Pantoprazole Sodium (Protonix Tab*) 40 mg PO DAILY [facility] Last Admin: 09/19/18 08:34 Dose: 40 mg Pyridoxine HCl (Vitamin B6 Tab*) 100 mg PO DAILY [facility] Last Admin: 09/19/18 07:39 Dose: Not Given Laboratory Results - last 24 hr 09/18/18 13:25 Fluid Source Pleural Fluid LDH 105 Vital Signs: Temp Pulse Resp BP Pulse Ox 98.1 F 125 16 125/54 93 09/19/18 07:23 09/19/18 07:23 09/19/18 13:22 09/19/18 07:23 09/19/18 07:23 Exam: Gen: uncomfortable appearing 57 yo female in NAD Neck: supple, nonTTP HEENT: MMM CV: RRR, no m/r/g Resp: CTA, no w/c/r Abd: soft, nonTTP Ext: no edema Assessment: [57 yo female with metastatic breast CA who recently started gemcitabine who was admitted shortly after her infusion with fever, weakness and BURGOS.] Plan: [1. Fever: - no clear source of infection - the timing of her fever is suspicious for this being a drug fever from the gemcitabine infusion - cultures are now negative, will stop antibiotics 2. Pleural effusion, malignant - thoracentesis with Dr Bermeo completed yesterday with improved dyspnea - fluid analysis is not suggestive of the fluid being infected 3. BURGOS - she has a h/o of intermittent HAs as well as prior [employer] mets - she was scheduled for an outpatient MRI today for routine surveillance post gammaknife, given the severity of her BURGOS it is prudent to complete this MRI prior to discharge to ensure appropriate management - cont current dexamethasone at 2 mg bid 3. Metastatic BCA - h/o [employer] mets s/p gammaknife 06/2018 - evidence of new hepatic mets on GBUS when compared to PET from July 2018 and associated transaminitis - [id number] analysis of prior pleural fluid returned positive, prior results have been negative - she has tolerated gemcitabine extremely poorly, no plans to continue current therapy - will start herceptin/carboplatin next week assuming her blood counts will tolerate this Dispo: discharge pending MRI brain
[2018-09-19] MEDS: Amitriptyline TAB* 25 MG PO SCH (20:04)
[2018-09-19] MEDS: Dexamethasone TAB* 4 MG PO SCH (20:05)
--- NOTE | 2018-09-20 07:50 | DS ---
- Discharge Summary ADMIT DATE: 09/18/18 DISCHARGE DATE: 09/20/2018 DISCHARGE DIAGNOSES: 1. malignant pleural effusion sp thoracentesis 2. nausea/vomiting, chemotherapy induced 3. headaches, progressive bone mets DISCHARGE MEDICATIONS: Home Medications Medication Instructions Recorded Confirmed Type Denosumab* [Xgeva*] 120 mg SUBCUT MONTHLY 12/30/17 09/17/18 History Mupirocin 2% OINT* [Bactroban 2 % 1 applic TOPICAL DAILY PRN 12/30/17 09/17/18 History Oint*] ALPRAZolam TAB* [Xanax TAB*] 0.25 - 0.5 mg PO TID PRN 04/24/18 09/17/18 History Amitriptyline TAB* [Elavil TAB*] 25 mg PO BEDTIME 04/24/18 09/17/18 History Amphetamine/Dextroamph ER(NF) 20 mg PO DAILY PRN 04/24/18 09/17/18 History [Adderal XR (NF)] Cetirizine* [ZyrTEC 10 MG TAB*] 5 mg PO DAILY PRN 04/24/18 09/19/18 History Omeprazole CAP (NF) [Prilosec CAP* 20 mg PO DAILY 04/24/18 09/17/18 History 20 MG] Prochlorperazine TAB* [Compazine 10 mg PO Q4HR PRN 04/24/18 09/17/18 History Tab*] oxyCODONE TAB* [Roxycodone TAB 5 5 mg PO Q6H PRN 04/24/18 09/17/18 History mg*] Dexamethasone 2 mg PO BID 09/19/18 09/19/18 History Calcium Carbonate TAB* 1,250 mg PO DAILY tab 09/20/18 Rx Multivitamins/Minerals TAB* 1 tab PO DAILY tab 09/20/18 Rx [Theragran/minerals TAB*] Pyridoxine TAB* [Vitamin B6 TAB*] 100 mg PO DAILY tab 09/20/18 Rx buPROPion SR TAB* [Wellbutrin SR 200 mg PO DAILY tab.sr 09/20/18 Rx TAB*] lamoTRIgine TAB(*) [Lamictal 200 mg PO DAILY tab 09/20/18 Rx TAB(*)] DISCHARGE FOLLOW UP: 1. Dr. Elizabeth's office 2/12 8:30 am hydration/labs 2. chemotherapy 09/25 at 10 am HOSPITAL COURSE: see full admit details. Briefly 57 yo F w progressive metastatic breast cancer on gemcitabine presenting with worsening pleural effusion, nausea and dehydration. S/P therapeutic thoracentesis with marked improvement. Developed a headaches and brain MRI revealed several SMALL new brain mets, with improvement in treated ones. Her2 testing on prior fluid from 04/2018 came back positive by FISH (03/2018 negative by FISH, neck node FISH failed and Her2 2+). Imaging with new liver lesions. We discussed this at length. I discussed first with Shena and then with her and her daughter that I am concerned that with progressive disease and falling performance status that we are getting closer to hospice. She has not had Her2 therapy to date however and may have a component of Her2 positive disease driving her cancer. Given this she is interested in trying at least one line of therapy that contains Her2. I have recommended carboplatin/herceptin. She has had 2 weekly gemcitabine doses, so assuming that her counts are decent on of next week (week 3) we could given Carbo AUC 5 with herceptin load and then 3 weeks later drop gemcitabine and do carbo/herceptin alone. I would like to bring her in Saturday for labs and hydration. We discussed quality vs. quantity of life at length. We reviewed hospice, which she is currently not ready for given that she wants to try another line of therapy. She will continue on her dexamethasone at 2 mg bid. >60 mins spent, >50% in face to face counseling
[2018-09-20 09:09] VITALS: BP 130/61
[2018-09-20] MEDS: Dexamethasone TAB* 4 MG PO SCH (09:47)
[2018-09-20] MEDS: Acetaminophen TAB* 325 MG PO PRN (09:47)
[2018-09-20] MEDS: Pantoprazole TAB * 40 MG TAB PO SCH (09:49)
[2018-09-20] MEDS: Pyridoxine TAB* 50 MG PO SCH (09:55)
[2018-09-20] MEDS: lamoTRIgine TAB(*) 100 MG PO SCH (09:55)
[2018-09-20] MEDS: Amphetamine/Dextroamph ER(NF) 10 MG CAP.ER PO SCH (09:55)
[2018-09-20] MEDS: Calcium Carbonate TAB* 1250 MG (CALCIUM 500 MG) PO SCH (09:55)
[2018-09-20] MEDS: Multivitamins/Minerals TAB PO SCH (09:55)
[2018-09-20] MEDS: Cetirizine* 10 MG TAB PO SCH (09:55)
[2018-09-20] MEDS: Cholecalciferol TAB* 1000 UNITS PO SCH (09:55)
[2018-09-20] MEDS: buPROPion SR TAB.SR* 200 MG PO SCH (09:55)
== END 2018-09-20 12:10 | disposition home health service (06) | DRG 382 ==
LOC: ED 20:51 → MED 09-18 00:34 → OBSVTOIN 09-18 11:11
PROVIDERS: ADMIT Internal Medicine; ATTEND Internal Medicine Hematology & Oncology
PROC: 0W9B3ZZ Drainage of Left Pleural Cavity, Percutaneous Approach (ICD-10-PCS; principal; 2018-09-18)
DX: C50.919 Malignant neoplasm of unspecified site of unspecified female breast (principal); J91.0 Malignant pleural effusion; R65.10 Systemic inflammatory response syndrome (SIRS) of non-infectious origin without acute organ dysfunction; C78.7 Secondary malignant neoplasm of liver and intrahepatic bile duct; C79.51 Secondary malignant neoplasm of bone; C79.31 Secondary malignant neoplasm of brain; R11.2 Nausea with vomiting, unspecified; T45.1X5A Adverse effect of antineoplastic and immunosuppressive drugs, initial encounter; Y92.239 Unspecified place in hospital as the place of occurrence of the external cause; R51 Headache; R79.89 Other specified abnormal findings of blood chemistry; E86.0 Dehydration; Z92.3 Personal history of irradiation; Z90.89 Acquired absence of other organs; Z88.1 Allergy status to other antibiotic agents; Z88.8 Allergy status to other drugs, medicaments and biological substances; Z88.2 Allergy status to sulfonamides; Z88.5 Allergy status to narcotic agent; Z90.49 Acquired absence of other specified parts of digestive tract; Z82.3 Family history of stroke; Z81.8 Family history of other mental and behavioral disorders; Z82.49 Family history of ischemic heart disease and other diseases of the circulatory system; Z72.89 Other problems related to lifestyle
CPT/HCPCS: 36415; 70450; 70553; 71045; 76604; 76705; 80053; 81003; 81015; 82945; 83605; 83615; 84157; 85025; 85610; 85730; 86140; 86850; 86900; 86901; 87040; 87070; 87086; 87205; 88112; 88305; 89051; 93005; 99232; 99239; 99285; A9270-GY; A9579; G0378; J0696; J1642; J2405; J2543; J3010; J3370; J8540